=== PATIENT | female | born 1990 | race Caucasian/White ===

== ENCOUNTER 2020-07-25 16:22 | Emergency (ER) | payer BC, MEDICAID ==
[~2020-07-25] VITALS: Ht 152.4 cm; Wt 56.0 kg
[2020-07-25 18:35] LABS: BASOPHILS % 0.3 % (0.0-2.0); EOSINOPHILS % 0.1 % (0.0-5.0); HEMATOCRIT. 41.5 % (36.0-48.0); LYMPHOCYTES % 13.5 % (20.0-50.0); MEAN CORPUSCULAR HEMOGLOBIN 29.4 pg (28.0-32.0); MEAN CORPUSCULAR VOLUME 86.9 fL (81.0-99.0); MEAN PLATELET VOLUME 8.1 fl (7.4-10.4); MONOCYTES % 5.1 % (2.0-8.0); PLATELET 329 x1000/uL (130-400); RED BLOOD CELL COUNT 4.77 mill/uL (4.2-5.4); RED CELL DISTRIBUTION WIDTH 13.2 % (11.6-14.6)
[2020-07-25 18:43] LABS: D-DIMER 0.3 mg/L FEU (<0.50)
[2020-07-25 18:46] LABS: HCG SCREEN NEGATIVE
[2020-07-25 18:50] LABS: CHLORIDE 109 mEq/L (98-107)
[2020-07-25 20:30] VITALS: BP 135/82
[2020-07-25] MEDS ORDERED: IOHEXOL-350 100 ML BOTTLE ONE (23:16)
== END 2020-07-25 20:55 | disposition home or self-care (01) ==
LOC: ER 16:22
DX: R07.89 Other chest pain (principal); F41.9 Anxiety disorder, unspecified; U07.1 COVID-19; J45.909 Unspecified asthma, uncomplicated
CPT/HCPCS: 36415; 71045; 71275; 80053; 83880; 84484; 84703; 85025; 85379; 85610; 99285; Q9967